=== PATIENT | female | born 1955 | race Caucasian/White ===

== ENCOUNTER 2016-08-26 14:00 | Outpatient (CLI) | payer OTHER ==
--- NOTE | 2016-08-26 18:06 | RAD ---
CHEST 2 VIEWS: Date: 08/26/16 Comparison made with an 03/07/05 study. FINDINGS: The heart is slightly larger than before and is now upper limits of normal. There is no vascular con gestion, edema, or pleural effusion. No lobar consolidation seen. The lungs are slightly hyperexpand ed. Some of the basilar lung markings show some very minimal prominence which could be minimal fibro tic change, or could be due to entities such as viral illness. Mild degenerative changes are seen in the spine. IMPRESSION: Mildly hyperexpanded lungs with slight prominence of basilar markings. See above. POS: HOME
== END 2016-08-26 14:01 | disposition home or self-care (01) ==
LOC: BURRAD 14:00
PROVIDERS: ATTEND Family Medicine
DX: H20.9 Unspecified iridocyclitis (principal)
CPT/HCPCS: 71020

== ENCOUNTER 2021-02-16 12:03 | Outpatient (CLI) | payer OTHER | END 2021-02-16 12:04 | disposition home or self-care (01) | LOC: BURRAD 12:03 | PROVIDERS: ATTEND Nurse Practitioner Family | DX: M79.671 Pain in right foot (principal); M77.31 Calcaneal spur, right foot ==